=== PATIENT | female | born 1970 | race Two or more races ===

== ENCOUNTER 2024-07-01 15:39 | Emergency (ER) | payer OTHER ==
[~2024-07-01] VITALS: Ht 152.4 cm; Wt 49.9 kg
[2024-07-01] MEDS ORDERED: KETOROLAC TROMETHAMINE 60 MG VIAL IM ONE ×2 (16:28→16:30)
[2024-07-01] MEDS ORDERED: TRIAMCINOLONE ACETONIDE 40 MG/ML VIAL ONE (16:28)
[2024-07-01] MEDS ORDERED: TRIAMCINOLONE ACETONIDE 40 MG/ML VIAL IM ONE (16:30)
[2024-07-01] MEDS ORDERED: NORFLEX100MG PO (17:11)
[2024-07-01] MEDS ORDERED: DICLOFENAC SODI75 MG PO (17:11)
== END 2024-07-01 18:57 | disposition home or self-care (01) ==
LOC: ER 15:40
DX: M54.50 Low back pain, unspecified (principal)

== ENCOUNTER 2025-02-16 13:06 | Emergency (ER) | payer OTHER ==
[~2025-02-16] VITALS: Ht 152.4 cm; Wt 49.9 kg
[~2025-02-16 13:06] MED LIST: DICLOFENAC SODI75 MG PO; NORFLEX100MG PO
[2025-02-16] MEDS ORDERED: KETOROLAC TROMETHAMINE 60 MG VIAL IM STA (14:22)
[2025-02-16] MEDS ORDERED: ORPHENADRINE CITRATE 30 MG/ML AMPUL IM STA (14:22)
[2025-02-16] MEDS ORDERED: DEXAMETHASONE SODIUM PHOSPHATE 4 MG/ML VIAL IM STA (14:22)
[2025-02-16] MEDS ORDERED: KETOROLAC TROMETHAMINE 60 MG VIAL IM ONE (14:28)
[2025-02-16] MEDS ORDERED: ORPHENADRINE CITRATE 30 MG/ML AMPUL ONE (14:28)
[2025-02-16] MEDS ORDERED: DEXAMETHASONE SODIUM PHOSPHATE 4 MG/ML VIAL ONE (14:29)
== END 2025-02-16 14:34 | disposition home or self-care (01) ==
LOC: ER 13:07
DX: M54.50 Low back pain, unspecified (principal)